=== PATIENT | male | born 1955 | race Caucasian/White ===

== ENCOUNTER 2017-02-28 11:39 | Inpatient (IN) ==
--- NOTE | 2017-02-28 11:50 | Emergency Department Note ---
Disposition Clinical Impression: Supratherapeutic INR, Generalized weakness Disposition: Admitted As Inpatient Referrals: NONE,PCP [Non-Partnered Physician] - Forms: ED Satisfaction Letter Time of Disposition: 14:27 General Adult HPI - General Chief complaint: ED Shortness of Breath/Dyspnea Stated complaint: GENERAL Time Seen by Provider: 02/28/17 11:42 Source: patient Mode of arrival: wheelchair Limitations: no limitations Nursing Notes Reviewed: Yes Vital Signs Reviewed: Yes - History of Present Illness HPI Narrative: 61-year-old male who was undergoing stress test who was too weak to perform stress test arrives [facility] emergency department for evaluation sent from cardiology for his weakness. The patient admits to just feeling generalized weakness and overall malaise over the course of the past few weeks. The patient denies any chest pain, abdominal pain other than when he coughs. The patient states he has had a progressive cough that has been ongoing. The patient denies any sputum production. The patient denies any shortness of breath, difficulty urinating, unilateral leg swelling, surgeries, focalized weakness, paresthesias. The patient is answering all questions without difficulty. The patient does seem slightly somnolent the room. The patient does have a history of hypothyroidism. Onset (ago): unknown Pain Scale: 0 Consistency: constant, Worsening Improves with: nothing Worsens with: nothing Associated symptoms: Reports: malaise, shortness of breath, weakness Treatments Prior to Arrival: none - Related Data Allergies Allergy/AdvReac Type Severity Reaction Status Date / Time No Known Allergies Allergy Unverified 02/28/17 11:43 All systems ED: reviewed and negative except as stated. Constitutional: Reports: weakness. Denies: fever, chills, weight change Cardiovascular: Denies: chest pain, palpitations, dyspnea on exertion, edema, syncope Respiratory: Reports: dyspnea. Denies: cough, wheezes, hemoptysis, stridor Gastrointestinal: Denies: abdominal pain, nausea, vomiting, diarrhea, constipation, hematemesis, melena, hematochezia Musculoskeletal: Denies: back pain, neck pain, arthralgia, myalgia Integumentary: Denies: rash, abrasion, lesions Neurological: Reports: weakness. Denies: headache, numbness, paresthesias, confusion Past Medical History - Past Medical History Attestation: Yes The following information was validated with the patient. Source: patient Medical history: Reports: hypertension, thyroid disease Surgical history: Reports: non-contributory - Social History Smoking Status: Smoker, status unknown Alcohol use: Reports: none Drug use: Reports: none Physical Exam - General Limitations: no limitations General appearance: alert, in no apparent distress - Head Head exam: atraumatic, normocephalic, normal inspection - Eye Eye exam: Present: normal appearance, PERRL, EOMI - ENT ENT exam: normal exam, normal oropharynx, mucous membranes moist - Neck Neck exam: Present: normal inspection, full ROM, trachea midline - Chest Chest inspection: Present: normal inspection, symmetric chest wall rise - Respiratory Respiratory exam: Present: normal lung sounds bilaterally - Cardiovascular Cardiovascular exam: Present: regular rate, normal rhythm, normal heart sounds - Abdominal Exam Abdominal exam: Present: soft, Non-Tender. Absent: tenderness, distention, guarding, rebound, rigidity - Extremities Exam Extremities exam: Present: normal inspection, full ROM. Absent: tenderness, pedal edema - Neurological Exam Neurological exam: Present: alert, oriented X3, CN II-XII intact Course Vital Signs Temperature 98.1 F 02/28/17 11:44 Pulse Rate 63 02/28/17 11:44 Respiratory Rate 20 02/28/17 11:44 Blood Pressure 130/85 02/28/17 11:44 O2 Sat by Pulse Oximetry 93 02/28/17 11:44 Temperature 98.1 F 02/28/17 11:44 Pulse Rate 64 02/28/17 12:43 Respiratory Rate 22 02/28/17 12:43 Blood Pressure 131/85 02/28/17 12:43 O2 Sat by Pulse Oximetry 91 02/28/17 12:43 Oxygen Delivery Oxygen Delivery Room Air Medical Decision Making - [facility] Narrative Medical decision making narrative: Patient continues to express weakness. The patient has intermittent mild altered mentation. Given the patient's symptoms and findings of supratherapeutic INR combined with his symptoms of weakness, we will admit the patient to the hospitalist for further care. Patient was accepted by Dr. Yen. Vision has been experiencing no black or bloody stools, no hematemesis. - Lab Data Lab results reviewed: Yes I reviewed the patient's lab results. Result diagrams: 02/28/17 12:01 02/28/17 12:01 Lab Results 0902/28/17 02/28/17 Range/Units 12:01 12:01 12:01 WBC 10.2 (4.3-11.1) K/mcL RBC 5.36 (4.19-5.50) M/mcL Hgb 16.4 (12.9-16.9) g/dL Hct 49.8 (37.5-50.1) % MCV 92.9 (83.0-100.0) fL MCH 30.6 (28.0-33.3) pg MCHC 32.9 (31.6-35.5) g/dL RDW 14.0 (11.5-14.5) % Plt Count 252 (140-400) K/mcL MPV 9.8 (9.4-12.4) fL Immature Gran % 0.5 (0-4) % Seg Neutrophils % 75.4 % Lymphocytes % 8.8 % Monocytes % 14.2 % Eosinophils % 0.8 % Basophils % 0.3 % Neutrophils # 7.7 (1.6-8.9) K/mcL Lymphocytes # 0.9 (0.6-4.6) K/mcL Monocytes # 1.5 H (0.0-1.3) K/mcL Eosinophils # 0.1 (0.0-0.6) K/mcL Basophils # 0.0 (0.0-0.2) K/mcL Immature Plt Fraction 3.9 (1.1-6.1) % PT (9.4-12.1) Seconds INR Sodium 136 (136-145) mEq/L Potassium 4.0 (3.5-4.5) mEq/L Chloride 104 (98-109) mEq/L Carbon Dioxide 23 (19-29) mEq/L BUN 20 (8-26) mg/dL Creatinine 1.08 (0.72-1.25) mg/dL Est GFR ( Amer) > 60 (> 60) Est GFR (Non-Af Amer) > 60 (> 60) BUN/Creatinine Ratio 19 (6-26) Glucose 96 (70-99) mg/dL Calculated Osmolality 284 (280-300) Calcium 9.5 (8.6-10.8) mg/dL Total Bilirubin 0.7 (0.2-1.2) mg/dL AST 14 (5-34) Units/L ALT 16 (0-55) Units/L Alkaline Phosphatase 136 H (38-126) Units/L Troponin I 0.01 (0-0.03) ng/mL B-Natriuretic Peptide (0-100) pg/mL Serum Total Protein 7.2 (6.0-8.3) g/dL Albumin 2.7 L (3.5-5.0) g/dL Globulin 4.5 H (2.4-3.5) g/dL Albumin/Globulin Ratio 0.6 L (1.1-2.2) TSH 0.707 (0.350-4.840) mcIU/mL Free T4 1.59 H (0.70-1.48) ng/dl Urine Color (Yellow) Urine Clarity (Clear) Urine pH (5.0-8.0) pH Units Ur Specific [place] (1.010-1.025) Urine Protein (Neg-Trace) mg/dL Urine Glucose (UA) (Normal) mg/dL Urine Ketones (Negative) mg/dL Urine Blood (Negative) Urine Nitrite (Negative) Urine Bilirubin (Negative) Urine Urobilinogen (Normal) mg/dL Ur Leukocyte Esterase (Negative) Urine Microscopic RBC (0-3) per hpf Urine Microscopic WBC (0-3) per hpf Ur Squamous Epith Cells (None-Few) per lpf Urine Bacteria (None-Few) per hpf Hyaline Casts (None-Few) per lpf Ur Culture Indicated? (NO) 02/28/17 02/28/17 02/28/17 Range/Units 12:01 12:45 13:38 WBC (4.3-11.1) K/mcL RBC (4.19-5.50) M/mcL Hgb (12.9-16.9) g/dL Hct (37.5-50.1) % MCV (83.0-100.0) fL MCH (28.0-33.3) pg MCHC (31.6-35.5) g/dL RDW (11.5-14.5) % Plt Count (140-400) K/mcL MPV (9.4-12.4) fL Immature Gran % (0-4) % Seg Neutrophils % % Lymphocytes % % Monocytes % % Eosinophils % % Basophils % % Neutrophils # (1.6-8.9) K/mcL Lymphocytes # (0.6-4.6) K/mcL Monocytes # (0.0-1.3) K/mcL Eosinophils # (0.0-0.6) K/mcL Basophils # (0.0-0.2) K/mcL Immature Plt Fraction (1.1-6.1) % PT 89.0 H* (9.4-12.1) Seconds INR 7.9 H* Sodium (136-145) mEq/L Potassium (3.5-4.5) mEq/L Chloride (98-109) mEq/L Carbon Dioxide (19-29) mEq/L BUN (8-26) mg/dL Creatinine (0.72-1.25) mg/dL Est GFR ( Amer) (> 60) Est GFR (Non-Af Amer) (> 60) BUN/Creatinine Ratio (6-26) Glucose (70-99) mg/dL Calculated Osmolality (280-300) Calcium (8.6-10.8) mg/dL Total Bilirubin (0.2-1.2) mg/dL AST (5-34) Units/L ALT (0-55) Units/L Alkaline Phosphatase (38-126) Units/L Troponin I (0-0.03) ng/mL B-Natriuretic Peptide 139 H (0-100) pg/mL Serum Total Protein (6.0-8.3) g/dL Albumin (3.5-5.0) g/dL Globulin (2.4-3.5) g/dL Albumin/Globulin Ratio (1.1-2.2) TSH (0.350-4.840) mcIU/mL Free T4 (0.70-1.48) ng/dl Urine Color Dark Yellow (Yellow) Urine Clarity Cloudy A (Clear) Urine pH 5.5 (5.0-8.0) pH Units Ur Specific [place] 1.027 H (1.010-1.025) Urine Protein Trace (Neg-Trace) mg/dL Urine Glucose (UA) Normal (Normal) mg/dL Urine Ketones Negative (Negative) mg/dL Urine Blood Large H (Negative) Urine Nitrite Negative (Negative) Urine Bilirubin Small H (Negative) Urine Urobilinogen Normal (Normal) mg/dL Ur Leukocyte Esterase Negative (Negative) Urine Microscopic RBC 5-15 H (0-3) per hpf Urine Microscopic WBC 0-3 (0-3) per hpf Ur Squamous Epith Cells None Seen (None-Few) per lpf Urine Bacteria None Seen (None-Few) per hpf Hyaline Casts None Seen (None-Few) per lpf Ur Culture Indicated? NO (NO) - Radiology Data Radiology results reviewed: Yes I reviewed the patient's radiology results. - EKG Data EKG #1 EKG attestation: Yes I reviewed and interpreted this EKG. EKG results narrative: 1. 62 bpm. SD interval 160 ms. QTc 458 ms. Normal axis. Normal sinus rhythm. No ST elevation or ST depression noted. No previous EKG on record. Attestation Statement - Attestation Attestation: I, Pasha Love DO, examined this patient [id number] and my medical decision-making was reviewed with Dr. Josue Garrison Resident Physician. I agree with the documented findings, disposition and treatment plan as described except to the extent set forth below. Please see my progress notes for details. 61-year-old male comes in from the cardiology clinic with 7 outpatient stress test performed. He had bradycardia symptoms and pressure during that event. He is not on emergency room evaluation. Patient has been noncompliant with his medications to him. He recently started all of his blood pressure medications and his anticoagulant Coumadin 2 weeks ago. Patient otherwise is in no distress. He is mentating appropriately answering questions appropriately. patient found to have elevated inr as well as symptoms concerning. see documentation in the resident physician
[2017-02-28 12:09] LABS: Basophils % 0.3 %; Eosinophils # 0.1 K/mcL (0.0-0.6); Eosinophils % 0.8 %; Hematocrit 49.8 % (37.5-50.1); Hemoglobin 16.4 g/dL (12.9-16.9); Immature Granulocytes % 0.5 % (0-4); Immature Platelets 3.9 % (1.1-6.1); Lymphocytes # 0.9 K/mcL (0.6-4.6); Lymphocytes % 8.8 %; Mean Corpuscular HGB Conc 32.9 g/dL (31.6-35.5); Mean Corpuscular Hemoglobin 30.6 pg (28.0-33.3); Mean Corpuscular Volume 92.9 fL (83.0-100.0); Mean Platelet Volume 9.8 fL (9.4-12.4); Monocytes # 1.5 K/mcL (0.0-1.3); Monocytes % 14.2 %; Neutrophils # 7.7 K/mcL (1.6-8.9); Platelet Count 252 K/mcL (140-400); Red Blood Count 5.36 M/mcL (4.19-5.50); Segmented Neutrophils % 75.4 %
[2017-02-28 12:25] LABS: Alanine Aminotransferase 16 Units/L (0-55); Albumin 2.7 g/dL (3.5-5.0); Albumin/Globulin Ratio 0.6 (1.1-2.2); Alkaline Phosphatase 136 Units/L (38-126); Aspartate Amino Transferase 14 Units/L (5-34); BUN/Creatinine Ratio 19 (6-26); Bilirubin,Total 0.7 mg/dL (0.2-1.2); Blood Urea Nitrogen 20 mg/dL (8-26); Calcium 9.5 mg/dL (8.6-10.8); Carbon Dioxide 23 mEq/L (19-29); Chloride 104 mEq/L (98-109); Globulin 4.5 g/dL (2.4-3.5); Glucose 96 mg/dL (70-99); Osmolality,Calculated 284 (280-300); Sodium 136 mEq/L (136-145); Total Protein 7.2 g/dL (6.0-8.3); eGFR For African Americans > 60 (> 60); eGFR For Non-African Americans > 60 (> 60)
[2017-02-28 12:45] LABS: Thyroid Stimulating Hormone 0.707 mcIU/mL (0.350-4.840)
[2017-02-28 12:53] LABS: Bilirubin,Urine Small (Negative); Blood,Urine Large (Negative); Clarity,Urine Cloudy (Clear); Color,Urine Dark Yellow (Yellow); Glucose,Urine (UA) Normal (Normal); Ketones,Urine Negative (Negative); Leukocyte Esterase,Urine Negative (Negative); Nitrite,Urine Negative (Negative); PH,Urine 5.5 pH Units (5.0-8.0); Protein,Urine Trace mg/dL (Neg-Trace); Specific Gravity,Urine 1.027 (1.010-1.025); Urobilinogen,Urine Normal (Normal)
[2017-02-28 12:56] LABS: Bacteria,Urine None Seen per hpf (None-Few); Hyaline Casts,Urine None Seen per lpf (None-Few); Squamous Epithelial Cell,Urine None Seen per lpf (None-Few); WBC,Urine 0-3 per hpf (0-3)
[2017-02-28 13:58] LABS: INR 7.9
[2017-02-28] MEDS ORDERED: methylPREDNISolone 125 MG/2 ML VIAL IVP ONE (15:38)
[2017-02-28] MEDS ORDERED: *HR* Morphine 2 MG/ML SYRINGE IVP PRN (15:38)
[2017-02-28] MEDS ORDERED: Acetaminophen 325 MG TABLET PO PRN (15:40)
[2017-02-28] MEDS ORDERED: Naloxone 0.4 MG/ML INJ IVP PRN (15:40)
[2017-02-28] MEDS ORDERED: Ondansetron 4 MG/2 ML VIAL IVP PRN (15:40)
[2017-02-28] MEDS ORDERED: Ibuprofen 400 MG TABLET PO PRN (15:40)
[2017-02-28] MEDS ORDERED: *HR* HYDROcodone/Acet 5/325 mg TABLET PO PRN (15:40)
--- NOTE | 2017-02-28 15:46 | Internal Med History&Physical ---
Date of Encounter: 02/28/17 Time of Encounter: 15:44 Assessment and Plan (1) COPD with acute exacerbation Current visit: Yes Status: Acute Acute COPD exacerbation secondary to community-acquired pneumonia Start Solu-Medrol, duo nebs, Rocephin and azithromycin Blood cultures Oxygen therapy Omeprazole for GI prophylaxis and warfarin for DVT prophylaxis. The patient will be admitted for observation. Full code. Time spent on this admission 40 minutes. High risk for respiratory failure (2) Community acquired pneumonia Current visit: Yes Status: Acute Qualifiers: Laterality: unspecified laterality Qualified Code(s): J18.9 - Pneumonia, unspecified organism (3) Tobacco abuse Current visit: Yes Status: Acute Smoking cessation counseling (4) A-fib Current visit: Yes Status: Acute Hold warfarin due to supratherapeutic INR Qualifiers: Atrial fibrillation type: paroxysmal Qualified Code(s): I48.0 - Paroxysmal atrial fibrillation (5) Hypothyroidism Current visit: Yes Status: Acute Qualifiers: Hypothyroidism type: unspecified Qualified Code(s): E03.9 - Hypothyroidism , unspecified (6) Hypertension Current visit: Yes Status: Acute Hold hydrochlorothiazide for now Qualifiers: Hypertension type: essential hypertension Qualified Code(s): I10 - Essential (primary) hypertension (7) Generalized weakness Current visit: Yes Status: Acute (8) Supratherapeutic INR Current visit: Yes Status: Acute Internal Medicine - H&P: HPI Chief complaint: Weakness Admitted From: Emergency Dept History of present illness: Mr. Parker is a 61 year old male with a past medical history of hypertension, hyperlipidemia, atrial fibrillation on warfarin, CAD, hypothyroidism, came to the emergency room complaining of severe weakness. He was scheduled to have a stress test today ordered by his primary care physician but important unfortunately the patient was barely able to stand up. He says that for the past week he has been bringing up yellowish phlegm, coughing constantly. Chest x-ray shows bilateral opacities pneumonia cannot be ruled out. Also started taking hydrochlorothiazide one week ago and up until 2 weeks ago he was off his medications as he was not able to afford them and started taking the taking them all recently. Appears dehydrated, was wheezing loudly and feels very short of breath. Denies sick contacts Past Med Surg Social Fam HX - Past Medical History Medical history: atrial fibrillation (On warfarin), COPD (Undiagnosed), coronary artery disease, hyperlipidemia, hypertension, thyroid disease ( Hypothyroidism), other (Tobacco use) - Past Surgical History Surgical History: pacemaker/AICD - Social History Smoking Status: Current every day smoker Smokeless Tobacco Status: No Alcohol use: none Drug use: none - Additional Family History Additional family history: Hypertension Internal Medicine - H&P: Meds Amiodarone [Cordarone] 200 mg PO DAILY 02/28/17 [History] Aspirin [Lo-Dose Aspirin EC] 81 mg PO DAILY 02/28/17 [History] Carvedilol [Coreg] 25 mg PO BID 02/28/17 [History] Clopidogrel [Plavix] 75 mg PO DAILY 02/28/17 [History] Hydrochlorothiazide [Microzide] 12.5 mg PO DAILY 02/28/17 [History] Levothyroxine Sodium [Levoxyl] 150 mcg PO DAILY 02/28/17 [History] Lisinopril [Zestril] 10 mg PO DAILY 02/28/17 [History] Pravastatin Sodium [Pravachol] 40 mg PO DAILY 02/28/17 [History] Warfarin [Coumadin] 2.5 mg PO DAILY 02/28/17 [History] 3 Allergy/AdvReac Type Severity Reaction Status Date / Time No Known Allergies Allergy Unverified 02/28/17 11:43 All Systems PM: A 10-system review of systems was performed and is negative for pertinent findings except as documented above in the HPI. Review of systems: Denies chest pain, or systems out of the 10 reviewed were negative - Constitutional Vitals: Temp Pulse Resp BP Pulse Ox 98.1 F 64 20 125/97 91 02/28/17 11:44 02/28/17 12:43 02/28/17 15:03 02/28/17 15:03 02/28/17 12:43 General appearance: Present: A&O X 3 - Head Head exam: Present: atraumatic, normocephalic - Eye Eye exam: Present: PERRL, conjuntiva pink, sclera anicteric Pupils: Present: PERRL - Neck Neck exam general surgery: Present: supple, trachea midline. Absent: lymphadenopathy - Respiratory Respiratory exam: Present: CTAB, rales, wheezes (Diffuse wheezing and crackles) . Absent: accessory muscle use, rhonchi - Cardiovascular Cardiovascular exam: Present: RRR, +S1, +S2. Absent: diastolic murmur, gallop, rubs, systolic murmur - GI/Abdominal GI/Abdominal exam: Present: normal bowel sounds, soft, no peritoneal signs. Absent: distended, tenderness - Extremities Exam Extremities exam: Present: warm, radial pulses palpable and symmetrical. Absent : calf tenderness, cyanotic, pedal edema - Neurological Exam Neurological exam: Present: CN II-XII intact, oriented X3, no focal deficits. Absent: pronater drift, facial droop, speech deficit - Skin Skin exam: Present: dry, intact Internal Med - H&P Results - Labs CBC & Chem 7: 02/28/17 12:01 02/28/17 12:01
[2017-02-28] MEDS: Ipratropium/Albuterol Neb 3 ML IH SCH ×2 (16:03→21:00)
[2017-02-28] MEDS: 0.9 % Sodium Chloride 1,000 ML IVC SCH (16:22)
[2017-02-28] MEDS: Nicotine 21 MG PATCH.TD24 TD SCH (16:28)
[2017-02-28] MEDS ORDERED: Warfarin perPT PO PRN (18:00)
[2017-02-28] MEDS: Azithromycin 500 MG in D5% in Water 250 ML IVPB SCH (18:04)
[2017-02-28] MEDS: MethylPREDNISolone 40 MG/ML VIAL IVP SCH (23:39)
[2017-03-01] MEDS: Ipratropium/Albuterol Neb 3 ML IH SCH ×4 (03:53→21:00)
[2017-03-01 05:53] LABS: Hematocrit 52.3 % (37.5-50.1); Mean Corpuscular HGB Conc 32.5 g/dL (31.6-35.5); Mean Corpuscular Hemoglobin 30.7 pg (28.0-33.3); Mean Corpuscular Volume 94.4 fL (83.0-100.0); Mean Platelet Volume 10.1 fL (9.4-12.4); Platelet Count 267 K/mcL (140-400); Red Blood Count 5.54 M/mcL (4.19-5.50); Red Cell Distribution Width 13.9 % (11.5-14.5)
[2017-03-01 06:01] LABS: Prothrombin Time 77.8 Seconds (9.4-12.1)
[2017-03-01 06:02] LABS: INR 6.9
[2017-03-01 06:05] LABS: BUN/Creatinine Ratio 18 (6-26); Blood Urea Nitrogen 22 mg/dL (8-26); Calcium 9.9 mg/dL (8.6-10.8); Carbon Dioxide 23 mEq/L (19-29); Chloride 103 mEq/L (98-109); Glucose 181 mg/dL (70-99); Osmolality,Calculated 296 (280-300); Sodium 139 mEq/L (136-145); eGFR For African Americans > 60 (> 60); eGFR For Non-African Americans 59 (> 60)
[2017-03-01] MEDS: MethylPREDNISolone 40 MG/ML VIAL IVP SCH ×3 (09:12→23:39)
[2017-03-01] MEDS: Aspirin Enteric Coated 81 MG Tablet PO SCH (09:13)
[2017-03-01] MEDS: *HR* Amiodarone 200 MG TABLET PO SCH (09:13)
[2017-03-01] MEDS: Nicotine 21 MG PATCH.TD24 TD SCH (09:13)
[2017-03-01] MEDS: 0.9 % Sodium Chloride 1,000 ML IVC SCH (10:27)
--- NOTE | 2017-03-01 13:31 | Internal Med Progress Note ---
<PiaNetwon [email or web address] - Last Filed: 03/01/17 13:28> Date of Encounter: 03/01/17 Time of Encounter: 08:20 - Assessment and plan (1) Supratherapeutic INR Current Visit: Yes Status: Acute Assessment and plan: - INR of 7.9 on admission, most recently 6.9 this morning - Continue to hold Coumadin, monitor for signs of bleeding from a pharmacy to dose warfarin - Continue INR checks (2) Generalized weakness Current Visit: Yes Status: Acute Assessment and plan: - Likely secondary to incorrect use of medication versus COPD exacerbation versus pneumonia - Treatment of underlying conditions as below (3) COPD with acute exacerbation Current Visit: Yes Status: Acute Assessment and plan: - Productive cough, shortness of breath, generalized weakness - Chest x-ray emergency department showed signs of chronic COPD plus or minus pneumonia - Receiving Solu-Medrol 40 mg IV every 8 hours, DuoNeb's, azithromycin - We will continue to monitor and give supplement oxygen as needed to keep saturation 88-92% (4) Community acquired pneumonia Current Visit: Yes Status: Acute Assessment and plan: - Chest x-ray emerged showed possible pneumonia - Vital signs all within normal limits - WBC within normal limits - Rocephin, azithromycin Qualifiers: Laterality: unspecified laterality Qualified Code(s): J18.9 - Pneumonia, unspecified organism (5) A-fib Current Visit: Yes Status: Acute Assessment and plan: - rate controlled on carvedilol, amiodarone - Holding Coumadin until INR becomes therapeutic, pharmacy to dose Qualifiers: Atrial fibrillation type: paroxysmal Qualified Code(s): I48.0 - Paroxysmal atrial fibrillation (6) Hypothyroidism Current Visit: Yes Status: Acute Assessment and plan: Continue home meds Qualifiers: Hypothyroidism type: unspecified Qualified Code(s): E03.9 - Hypothyroidism , unspecified (7) Hypertension Current Visit: Yes Status: Acute Assessment and plan: Well-controlled this morning at 118/76 Continue home meds Qualifiers: Hypertension type: essential hypertension Qualified Code(s): I10 - Essential (primary) hypertension (8) Tobacco abuse Current Visit: Yes Status: Acute Assessment and plan: Lengthy Discussion held today regarding his tobacco cessation - He states he has a strong desire to quit at this time as he has had a realization about his health (9) DVT prophylaxis Current Visit: Yes Status: Acute Assessment and plan: INR supratherapeutic, will hold Coumadin - Time Spent With Patient 25 - 35 minutes - Subjective Interval history: Patient was seen and examined at bedside this morning. He states his reason for admission is "stupidity". He states He is well aware of that he needs to take better care of his health. He has reportedly not seen his doctor or gone to his Coumadin checks for over one year. He also states that he stopped taking his medications in January for an extended period time and just restarted his medications approximately 2 weeks ago. His only complaint at this time is a nonproductive cough. He states he normally has a cough secondary to his smoking use. Denies any symptoms of chest pain, shortness of breath, abdominal pain, hematochezia, melena, hematemesis. - Constitutional Vitals: Temp Pulse Resp BP Pulse Ox 97.4 F L 60 18 100/61 90 03/01/17 11:03 03/01/17 11:03 03/01/17 11:03 03/01/17 11:03 03/01/17 11:03 General appearance: Present: A&O X 3 Exam: Gen.: Vitals noted. No acute distress. AAOx3 HEENT: PERRL/EOMI, oropharynx clear, Normocephalic, atraumatic Neck: Supple. No adenopathy. Cardiac: RRR, no murmur, +S1/S2 Pulmonary: Mild diffuse wheezes, no rales or rhonchi, equal chest expansion Abdomen: soft, nontender, BS noted, no guarding Back: Nontender throughout. MSK: ROM intact, no joint swelling noted Extremities: no BLE edema, nontender calf, no cyanosis or clubbing Neuro: A&Ox3, moves all extremities, no focal deficits Psych: Appropriate mood and behavior Internal Medicine: Result - Labs CBC & Chem 7: 03/01/17 04:43 03/01/17 04:43 Labs: Short CBC 03/01/17 Range/Units 04:43 WBC 9.8 (4.3-11.1) K/mcL Hgb 17.0 H (12.9-16.9) g/dL Hct 52.3 H (37.5-50.1) % Plt Count 267 (140-400) K/mcL BMP 03/01/17 04:43 Sodium 139 Potassium 4.0 Chloride 103 Carbon Dioxide 23 BUN 22 Creatinine 1.23 Glucose 181 H Calcium 9.9 - ABG Interpretation ABG results: PT/INR, D-dimer PT 77.8 Seconds (9.4-12.1) H* 03/01/17 04:43 Consult Discharge Plan - Plan Referrals: Sharyn Parker [Primary Care Provider] - <Kodak Valadez - Last Filed: 03/01/17 18:26> Date of Encounter: 03/01/17 - Assessment and plan (1) Acute respiratory failure with hypoxia Current Visit: Yes Status: Acute Assessment and plan: Oxygen. Wean as tolerated. (2) COPD with acute exacerbation Current Visit: Yes Status: Acute (3) Pneumonia Current Visit: Yes Status: Suspected Qualifiers: Pneumonia type: due to Haemophilus influenzae Laterality: bilateral Lung location: lower lobe of lung Qualified Code(s): J14 - Pneumonia due to Hemophilus influenzae (4) A-fib Current Visit: Yes Status: Chronic Qualifiers: Atrial fibrillation type: paroxysmal Qualified Code(s): I48.0 - Paroxysmal atrial fibrillation (5) Hypertension Current Visit: Yes Status: Chronic Qualifiers: Hypertension type: essential hypertension Qualified Code(s): I10 - Essential (primary) hypertension (6) Hypothyroidism Current Visit: Yes Status: Chronic Qualifiers: Hypothyroidism type: acquired Qualified Code(s): E03.9 - Hypothyroidism, unspecified (7) Supratherapeutic INR Current Visit: Yes Status: Acute (8) Tobacco abuse Current Visit: Yes Status: Chronic - Constitutional Vitals: Temp Pulse Resp BP Pulse Ox 97.5 F L 61 20 106/62 92 03/01/17 15:46 03/01/17 15:46 03/01/17 16:22 03/01/17 15:46 03/01/17 16:22 Internal Medicine: Result - Labs CBC & Chem 7: 03/01/17 04:43 03/01/17 04:43 Labs: Short CBC 03/01/17 Range/Units 04:43 WBC 9.8 (4.3-11.1) K/mcL Hgb 17.0 H (12.9-16.9) g/dL Hct 52.3 H (37.5-50.1) % Plt Count 267 (140-400) K/mcL BMP 03/01/17 04:43 Sodium 139 Potassium 4.0 Chloride 103 Carbon Dioxide 23 BUN 22 Creatinine 1.23 Glucose 181 H Calcium 9.9 - ABG Interpretation ABG results: PT/INR, D-dimer PT 77.8 Seconds (9.4-12.1) H* 03/01/17 04:43 - Attending Attestation I examined this patient and my medical decision-making was reviewed with the Resident Physician on 03/01/17. I agree with the documented findings, disposition and treatment plan as described except to the extent set forth below. Mr. Parker is currently admitted for acute exac COPD and pneumonia. He remains moderate to high risk due to potential for worsening resp status. Mr Parker is feeling somewhat better. No fever or chills. Still with dyspnea and cough. No CP. Exam Alert. Comfortable Mucus membranes dry Heart reg Diffuse wheeze Abd soft No edema I/P 1. Hypoxia 2. PNA Further diagnoses and plan as above.
[2017-03-01] MEDS: Azithromycin 500 MG in D5% in Water 250 ML IVPB SCH (16:05)
[2017-03-02] MEDS: Ipratropium/Albuterol Neb 3 ML IH SCH ×4 (04:07→22:47)
[2017-03-02] MEDS: 0.9 % Sodium Chloride 1,000 ML IVC SCH (04:28)
[2017-03-02 07:45] LABS: Hematocrit 44.2 % (37.5-50.1); Mean Corpuscular Hemoglobin 31.3 pg (28.0-33.3); Mean Corpuscular Volume 94.8 fL (83.0-100.0); Mean Platelet Volume 10.3 fL (9.4-12.4); Platelet Count 239 K/mcL (140-400); Red Blood Count 4.66 M/mcL (4.19-5.50); Red Cell Distribution Width 14.2 % (11.5-14.5)
[2017-03-02 07:48] LABS: BUN/Creatinine Ratio 24 (6-26); Blood Urea Nitrogen 26 mg/dL (8-26); Calcium 8.8 mg/dL (8.6-10.8); Carbon Dioxide 21 mEq/L (19-29); Chloride 108 mEq/L (98-109); Glucose 122 mg/dL (70-99); Osmolality,Calculated 292 (280-300); Potassium 3.9 mEq/L (3.5-4.5); Sodium 138 mEq/L (136-145); eGFR For African Americans > 60 (> 60); eGFR For Non-African Americans > 60 (> 60)
[2017-03-02 07:51] LABS: Hemoglobin 14.6 g/dL (12.9-16.9)
[2017-03-02 08:01] LABS: INR 4.4; Prothrombin Time 49.3 Seconds (9.4-12.1)
[2017-03-02] MEDS: Nicotine 21 MG PATCH.TD24 TD SCH (08:29)
[2017-03-02] MEDS: MethylPREDNISolone 40 MG/ML VIAL IVP SCH (08:53)
[2017-03-02] MEDS: Aspirin Enteric Coated 81 MG Tablet PO SCH (08:53)
[2017-03-02] MEDS: *HR* Amiodarone 200 MG TABLET PO SCH (08:53)
[2017-03-02 08:55] LABS: Basophils % 0.1 %; Lymphocytes # 0.5 K/mcL (0.6-4.6); Lymphocytes % 2.4 %; Monocytes # 1.4 K/mcL (0.0-1.3); Monocytes % 6.2 %; Neutrophils # 19.9 K/mcL (1.6-8.9); Segmented Neutrophils % 90.3 %
--- NOTE | 2017-03-02 10:24 | Internal Med Progress Note ---
<SadasussyNewton mcgrath - Last Filed: 03/02/17 10:22> Date of Encounter: 03/02/17 Time of Encounter: 10:22 - Assessment and plan (1) Supratherapeutic INR Current Visit: Yes Status: Acute Assessment and plan: - INR of 7.9 on admission, most recently 4.4 this morning - Continue to hold Coumadin, monitor for signs of bleeding from a pharmacy to dose warfarin - Continue INR checks (2) Generalized weakness Current Visit: Yes Status: Acute Assessment and plan: - Likely secondary to incorrect use of medication versus COPD exacerbation versus pneumonia - Treatment of underlying conditions as below (3) COPD with acute exacerbation Current Visit: Yes Status: Acute Assessment and plan: - Productive cough, shortness of breath, generalized weakness - Chest x-ray emergency department showed signs of chronic COPD plus or minus pneumonia - Receiving Solu-Medrol 40 mg IV every 8 hours, DuoNeb's, azithromycin. Will decrease steroid dose to oral prednisone - We will continue to monitor and give supplement oxygen as needed to keep saturation 88-92% (4) Community acquired pneumonia Current Visit: Yes Status: Acute Assessment and plan: - Chest x-ray emerged showed possible pneumonia - Vital signs all within normal limits - WBC increased today to 22.7 from 9.8. Differential shows 90% mature neutrophils, no bandemia. Likely a result of steroid use - Rocephin, azithromycin Qualifiers: Laterality: unspecified laterality Qualified Code(s): J18.9 - Pneumonia, unspecified organism (5) A-fib Current Visit: Yes Status: Chronic Assessment and plan: - rate controlled on carvedilol, amiodarone. Heart rate of 66 - Holding Coumadin until INR becomes therapeutic, pharmacy to dose Qualifiers: Atrial fibrillation type: paroxysmal Qualified Code(s): I48.0 - Paroxysmal atrial fibrillation (6) Hypothyroidism Current Visit: Yes Status: Chronic Assessment and plan: Continue home meds Qualifiers: Hypothyroidism type: acquired Qualified Code(s): E03.9 - Hypothyroidism, unspecified (7) Hypertension Current Visit: Yes Status: Chronic Assessment and plan: Well-controlled this morning at 101/52 Continue home meds Qualifiers: Hypertension type: essential hypertension Qualified Code(s): I10 - Essential (primary) hypertension (8) Tobacco abuse Current Visit: Yes Status: Chronic Assessment and plan: Lengthy Discussion held today regarding his tobacco cessation - He states he has a strong desire to quit at this time as he has had a realization about his health (9) DVT prophylaxis Current Visit: Yes Status: Acute Assessment and plan: INR supratherapeutic, will hold Coumadin - Subjective Interval history: Patient was seen and examined at bedside this morning. He states he is doing much better today and is not complaining of any shortness of breath, cough, fevers, chills. He states he is not on home oxygen. He has no complaints at this time - Constitutional Vitals: Temp Pulse Resp BP Pulse Ox 97.6 F 69 18 140/66 91 03/02/17 07:41 03/02/17 07:41 03/02/17 07:41 03/02/17 07:41 03/02/17 08:02 General appearance: Present: A&O X 3 Exam: Gen.: Vitals noted. No acute distress. AAOx3 HEENT: PERRL/EOMI, oropharynx clear, Normocephalic, atraumatic Neck: Supple. No adenopathy. Cardiac: Irregularly irregular rhythm, no murmur, +S1/S2 Pulmonary: CTA bilaterally, no wheezes, rales or rhonchi, equal chest expansion Abdomen: soft, nontender, BS noted, no guarding Back: Nontender throughout. MSK: ROM intact, no joint swelling noted Extremities: no BLE edema, nontender calf, no cyanosis or clubbing Neuro: A&Ox3, moves all extremities, no focal deficits Psych: Appropriate mood and behavior Internal Medicine: Result - Labs CBC & Chem 7: 03/02/17 06:37 03/02/17 06:37 Labs: Short CBC 03/02/17 Range/Units 06:37 WBC 22.7 H D (4.3-11.1) K/mcL Hgb 14.6 D (12.9-16.9) g/dL Hct 44.2 (37.5-50.1) % Plt Count 239 (140-400) K/mcL Neutrophils # 19.9 H (1.6-8.9) K/mcL BMP 03/02/17 06:37 Sodium 138 Potassium 3.9 Chloride 108 Carbon Dioxide 21 BUN 26 Creatinine 1.07 Glucose 122 H Calcium 8.8 - ABG Interpretation ABG results: PT/INR, D-dimer PT 49.3 Seconds (9.4-12.1) H* 03/02/17 06:37 Consult Discharge Plan - Plan Referrals: Sharyn Parker [Primary Care Provider] - <Kodak Valadez - Last Filed: 03/02/17 16:40> Date of Encounter: 03/02/17 - Assessment and plan (1) Acute respiratory failure with hypoxia Current Visit: Yes Status: Acute Assessment and plan: Wean oxygen. (2) COPD with acute exacerbation Current Visit: Yes Status: Acute (3) Pneumonia Current Visit: Yes Status: Suspected Qualifiers: Pneumonia type: due to Haemophilus influenzae Laterality: bilateral Lung location: lower lobe of lung Qualified Code(s): J14 - Pneumonia due to Hemophilus influenzae (4) A-fib Current Visit: Yes Status: Chronic Qualifiers: Atrial fibrillation type: paroxysmal Qualified Code(s): I48.0 - Paroxysmal atrial fibrillation (5) Hypertension Current Visit: Yes Status: Chronic Qualifiers: Hypertension type: essential hypertension Qualified Code(s): I10 - Essential (primary) hypertension (6) Hypothyroidism Current Visit: Yes Status: Chronic Qualifiers: Hypothyroidism type: acquired Qualified Code(s): E03.9 - Hypothyroidism, unspecified (7) Supratherapeutic INR Current Visit: Yes Status: Acute (8) Tobacco abuse Current Visit: Yes Status: Chronic - Constitutional Vitals: Temp Pulse Resp BP Pulse Ox 97.6 F 66 16 118/65 90 03/02/17 15:46 03/02/17 15:46 03/02/17 15:46 03/02/17 15:46 03/02/17 15:46 Internal Medicine: Result - Labs CBC & Chem 7: 03/02/17 06:37 03/02/17 06:37 Labs: Short CBC 03/02/17 Range/Units 06:37 WBC 22.7 H D (4.3-11.1) K/mcL Hgb 14.6 D (12.9-16.9) g/dL Hct 44.2 (37.5-50.1) % Plt Count 239 (140-400) K/mcL Neutrophils # 19.9 H (1.6-8.9) K/mcL BMP 03/02/17 06:37 Sodium 138 Potassium 3.9 Chloride 108 Carbon Dioxide 21 BUN 26 Creatinine 1.07 Glucose 122 H Calcium 8.8 - ABG Interpretation ABG results: PT/INR, D-dimer PT 49.3 Seconds (9.4-12.1) H* 03/02/17 06:37 - Attending Attestation I examined this patient and my medical decision-making was reviewed with the Resident Physician on 03/02/17. I agree with the documented findings, disposition and treatment plan as described except to the extent set forth below. Mr. Parker is currently admitted for acute hypoxic resp failure due to COPD. He remains moderate to high risk due to potential for worsening resp status. Mr. Parker is beginning to feel better today. No fever or chills. Feels his breathing is improving. Has moved in his room. Wants to get stress test done. Exam Alert. Comfortable. Mucus membranes dry Heart reg and distant Lungs clear at this time Abd soft No edema I/P 1. Acute hypoxic resp failure 2. COPD Further diagnoses and plan as above.
[2017-03-02] MEDS: Azithromycin 500 MG in D5% in Water 250 ML IVPB SCH (16:42)
[2017-03-02] MEDS: predniSONE 20 MG TABLET PO SCH (16:42)
[2017-03-03 03:03] LABS: Basophils % 0.1 %; Hematocrit 43.8 % (37.5-50.1); Immature Granulocytes % 1.1 % (0-4); Lymphocytes # 0.5 K/mcL (0.6-4.6); Lymphocytes % 2.4 %; Mean Corpuscular Volume 96.9 fL (83.0-100.0); Monocytes # 1.4 K/mcL (0.0-1.3); Monocytes % 6.1 %; Neutrophils # 20.3 K/mcL (1.6-8.9); Platelet Count 211 K/mcL (140-400); Red Blood Count 4.52 M/mcL (4.19-5.50); Red Cell Distribution Width 14.4 % (11.5-14.5); Segmented Neutrophils % 90.3 %
[2017-03-03 03:12] LABS: INR 3.3; Prothrombin Time 36.8 Seconds (9.4-12.1)
[2017-03-03 03:17] LABS: BUN/Creatinine Ratio 27 (6-26); Blood Urea Nitrogen 23 mg/dL (8-26); Calcium 8.5 mg/dL (8.6-10.8); Carbon Dioxide 20 mEq/L (19-29); Chloride 110 mEq/L (98-109); Glucose 99 mg/dL (70-99); Osmolality,Calculated 292 (280-300); Potassium 3.9 mEq/L (3.5-4.5); Sodium 139 mEq/L (136-145); eGFR For African Americans > 60 (> 60); eGFR For Non-African Americans > 60 (> 60)
[2017-03-03] MEDS: Ipratropium/Albuterol Neb 3 ML IH SCH ×3 (03:53→15:42)
[2017-03-03] MEDS ORDERED: Acetaminophen 325 MG TABLET PO PRN (08:07)
[2017-03-03] MEDS: Nicotine 21 MG PATCH.TD24 TD SCH (08:57)
[2017-03-03] MEDS: Aspirin Enteric Coated 81 MG Tablet PO SCH (08:58)
[2017-03-03] MEDS: *HR* Amiodarone 200 MG TABLET PO SCH (08:58)
[2017-03-03] MEDS: predniSONE 20 MG TABLET PO SCH (08:58)
--- NOTE | 2017-03-03 10:22 | Electrocardiograph Report ---
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
--- NOTE | 2017-03-03 11:17 | Discharge Summary ---
<SadasussyNewton mcgrath - Last Filed: 03/03/17 11:23> Date of Encounter: 03/03/17 Time of Encounter: 11:10 - Discharge Diagnosis (1) COPD with acute exacerbation Priority: Primary Status: Resolved Comments: Now in a chronic but stable state. Due to chronic COPD, patient will need a prescription for home Oxygen. (2) Supratherapeutic INR Priority: Secondary Status: Acute (3) Generalized weakness Priority: Secondary Status: Resolved (4) Community acquired pneumonia Priority: Secondary Status: Acute Qualifiers: Laterality: unspecified laterality Qualified Code(s): J18.9 - Pneumonia, unspecified organism (5) A-fib Priority: Secondary Status: Chronic Qualifiers: Atrial fibrillation type: paroxysmal Qualified Code(s): I48.0 - Paroxysmal atrial fibrillation (6) Hypothyroidism Priority: Secondary Status: Chronic Qualifiers: Hypothyroidism type: unspecified Qualified Code(s): E03.9 - Hypothyroidism , unspecified (7) Hypertension Priority: Secondary Status: Chronic Qualifiers: Hypertension type: essential hypertension Qualified Code(s): I10 - Essential (primary) hypertension (8) Tobacco abuse Priority: Secondary Status: Chronic (9) DVT prophylaxis Priority: Secondary Status: Acute - Discharge Medications Prescriptions: Azithromycin [Zithromax] 250 mg PO Q24H #2 tablet Cefdinir [Omnicef] 300 mg PO BID #2 capsule predniSONE [PredniSONE] See Taper PO BIDWM #21 tab Home Medications: Amiodarone [Cordarone] 200 mg PO DAILY 02/28/17 [History] Aspirin [Lo-Dose Aspirin EC] 81 mg PO DAILY 02/28/17 [History] Carvedilol [Coreg] 25 mg PO BID 02/28/17 [History] Clopidogrel [Plavix] 75 mg PO DAILY 02/28/17 [History] Hydrochlorothiazide [Microzide] 12.5 mg PO DAILY 02/28/17 [History] Levothyroxine Sodium [Levoxyl] 150 mcg PO DAILY 02/28/17 [History] Lisinopril [Zestril] 10 mg PO DAILY 02/28/17 [History] Pravastatin Sodium [Pravachol] 40 mg PO DAILY 02/28/17 [History] Warfarin [Coumadin] 2.5 mg PO DAILY 02/28/17 [History] Azithromycin [Zithromax] 250 mg PO Q24H #2 tablet 03/03/17 [Rx] Cefdinir [Omnicef] 300 mg PO BID #2 capsule 03/03/17 [Rx] predniSONE [PredniSONE] See Taper PO BIDWM #21 tab 03/03/17 [Rx] Allergies/Adverse Reactions: 3 Allergy/AdvReac Type Severity Reaction Status Date / Time No Known Allergies Allergy Unverified 02/28/17 11:43 Procedures/tests Complete & Pending: Procedures Performed prior 72 hours Category Date Time Status ECG 12 lead ECG [ECG] Routine Y 03/02/17 00:36 Completed Date of admission: 03/01/17 18:27 Primary care physician: Sharyn Parker Discharging clinician: Newton Kruger Anticipated date of discharge: 03/03/17 - Patient Status Disposition: Home, Self-Care Condition: Fair Functional capacity at discharge: independent ambulation Overall status at discharge: patient is progressing back to baseline - Discharge Instructions Follow Up With: Sharyn Parker [Primary Care Provider] - 03/10/17 2:50 pm (Please follow up as schedule...) - Diet and Activity Activity: increase activity as tolerated, resume usual activities as tolerated, wear oxygen at all times Diet: advance to your usual diet Hospital course: Mr. 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 He has a known history of Afib and COPD. He admitted to generalized weakness and malaise for the past few weeks. He also admitted to not being compliant with his medications for about a year and then restarted all of his medications in the past 2 weeks. He also complained of a progressive cough, without production and SOB, exacerbated with exertion. He denies any CP, n/v, urinary complaints, paraesthesias. In the ER, vitals were significant for a respiratory rate of 20, remainder were wnl. Labs were significant for an INR of 7.9. He admitted to being noncompliant with his coumadin checks. Head CT was negative. He was admitted to medicine service for COPD exacerbation secondary to PNA and supratherapeutic INR. During course of hospital stay, patient received rocephin, azithromycin, steroids, duonebs for his COPD with PNA and clinically improved. His shortness of breath improved and on day of discharge he is tolerating 2L of O2 via NC. He will be sent home with a steroid taper and antibiotics. His coumadin was held on admission and his INR returned to lower levels with INR of 3.3 on day of discharge. He failed his 6 minute walk test and desaturated to 84% and will be sent home with prescription for home O2. He will be instructed to follow up with his PCP, take his medications as prescribed, quit smoking, go to his coumadin checks. He will be discharged home in stable medical condition with no complaints and stable vital signs and lab values. Time spent discussing smoking cessation with patient: more than 10 minutes - Time Spent with Patient Total time spent providing and/or coordinating discharge services: 40 minutes. - Constitutional Vitals: Temp Pulse Resp BP Pulse Ox 97.7 F 65 16 134/82 90 03/03/17 07:31 03/03/17 07:31 03/03/17 10:27 03/03/17 07:31 03/03/17 10:27 General appearance: Present: A&O X 3 <Kodak Valadez - Last Filed: 03/03/17 14:00> Date of Encounter: 03/03/17 - Discharge Diagnosis (1) Acute respiratory failure with hypoxia Priority: Primary Status: Acute (2) COPD with acute exacerbation Status: Resolved (3) Pneumonia Priority: Secondary Status: Suspected Qualifiers: Pneumonia type: due to Haemophilus influenzae Laterality: bilateral Lung location: lower lobe of lung Qualified Code(s): J14 - Pneumonia due to Hemophilus influenzae (4) A-fib Status: Chronic Qualifiers: Atrial fibrillation type: paroxysmal Qualified Code(s): I48.0 - Paroxysmal atrial fibrillation (5) Hypertension Status: Chronic Qualifiers: Hypertension type: essential hypertension Qualified Code(s): I10 - Essential (primary) hypertension (6) Hypothyroidism Status: Chronic Qualifiers: Hypothyroidism type: unspecified Qualified Code(s): E03.9 - Hypothyroidism , unspecified (7) Supratherapeutic INR Status: Resolved (8) Tobacco abuse Status: Chronic Procedures/tests Complete & Pending: Procedures Performed prior 72 hours Category Date Time Status ECG 12 lead ECG [ECG] Routine Y 03/02/17 00:36 Completed Date of admission: 03/01/17 18:27 Primary care physician: Sharyn Parker [facility] course: Mr. Parker is a 61 year old male - Time Spent with Patient Total time spent providing and/or coordinating discharge services: 39min - Constitutional Vitals: Temp Pulse Resp BP Pulse Ox 97.5 F L 64 18 150/78 91 03/03/17 11:58 03/03/17 11:58 03/03/17 11:58 03/03/17 11:58 03/03/17 11:58 - Attending Attestation I examined this patient and my medical decision-making was reviewed with the Resident Physician on 03/03/17. I agree with the documented findings, disposition and treatment plan as described except to the extent set forth below. Mr Parker has been admitted for acute exac COPD and hypoxia. He has qualified for home oxygen. He is now afebrile and vitals are stable. Exam Alert. Comfortable Heart reg Minimal wheeze Abd soft No edema Plan D/C home today on home oxygen He is in a stable state needing chronic oxygen.
[2017-03-03 15:43] VITALS: BP 142/81
--- NOTE | 2017-03-03 17:37 | Electrocardiograph Report ---
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
[2017-03-03] MEDS ORDERED: *HR* Warfarin 2 MG TABLET PO ONE (18:00)
== END 2017-03-03 16:52 | disposition home or self-care (01) | DRG 190 ==
LOC: EMEROO 11:39 → 2ANU 11:39
PROVIDERS: ADMIT Internal Medicine; ATTEND Internal Medicine